=== PATIENT | male | born 1995 | race Caucasian/White ===

== ENCOUNTER 2018-10-19 15:08 | Emergency (ER) | payer MEDICAID ==
[~2018-10-19] VITALS: Ht 175.3 cm; Wt 80.9 kg
[2018-10-19 15:20] VITALS: BP 161/89; PULSE 79; RESP 18; Ht 175.3 cm; Wt 80.9 kg
--- NOTE | 2018-10-19 16:17 | ERD ---
ER Documentation Chief Complaint Chief Complaint left hand, laceration, bleeding control, good pulse. HPI 23-year-old male presents with complaint of laceration to the palm of his left hand. States that laceration occurred earlier today while he was trimming a plant and cut his palm with scissors. Patient denies any numbness or tingling or weakness. Patient states that he is had his immune vaccinations as a child but he does not think he is up-to-date on his tetanus. States his pain is currently 7 out of 10. He is right-hand dominant. He states he is not driving home. Denies any allergies or medical problems. ROS All systems reviewed and are negative except as per history of present illness. Medications Home Meds Active Scripts Bacitracin* (Bacitracin Oint (UD)*) 1 Applic Oint, 1 APPLIC TOP BID, #1 TUB APPLY TO Prov:SURYA SPICER 10/19/18 Cephalexin* (Keflex*) 500 Mg Capsule, 500 MG PO QID for 7 Days, CAP Prov:RUCATARINACAMILLESURYA 10/19/18 Hydrocodone/Acetaminophen ([place] 5-325 Tablet) 1 Each Tablet, 1 TAB PO Q6H PRN for PAIN, #7 TAB Prov:SURYA SPICER 10/19/18 Ibuprofen* (Motrin*) 600 Mg Tab, 600 MG PO Q6, #30 TAB Prov:SURYA SPICER 10/19/18 Allergies Allergies: Coded Allergies: No Known Allergy (Unverified , 10/19/18) FmHx Family History: No diabetes, No coronary disease, No other Physical Exam Vitals Vital Signs Date Temp Pulse Resp B/P (MAP) Pulse Ox O2 O2 Flow FiO2 Time Delivery Rate 10/19/18 97.3 79 18 161/89 98 15:20 (113) Physical Exam Const: No acute distress Head: Atraumatic Eyes: Normal Conjunctiva ENT: Normal External Ears, Nose and Mouth. Neck: Full range of motion. No meningismus. Resp: Clear to auscultation bilaterally Cardio: Regular rate and rhythm, no murmurs Abd: Soft, non tender, non distended. Normal bowel sounds Skin: Approximately 2 cm laceration noted to the thenar eminence of left palm with no evidence of foreign body. No current bleeding. Sensation and range of motion of all fingers and wrist is intact. No evidence of tendon laceration or infection. Back: No midline or flank tenderness Ext: No cyanosis, or edema Neur: Awake and alert Psych: Normal Mood and Affect Results 24 hrs Current Medications Medications Dose Sig/Thony Start Time Status Last (Trade) Ordered Route PRN Stop Time Admin Dose Reason Admin Diphtheria/ 0.5 ml ONCE ONCE 10/19/18 DC 10/19/18 Tetanus/Acell IM* 16:30 16:15 Pertussis 10/19/18 16:31 (Adacel) Oxycodone/ 1 tab ONCE ONCE 10/19/18 DC 10/19/18 Acetaminophen PO 16:30 16:15 (Percocet 10/19/18 16:31 (5/ 325)) Bacitracin 1 applic ONCE ONCE 10/19/18 DC 10/19/18 (Bacitracin TOP 16:30 16:14 Oint (Ud)) 10/19/18 16:31 Lidocaine 20 ml ONCE ONCE 10/19/18 DC (Xylocaine SC 16:30 1% (Mdv) 20 10/19/18 16:31 ml) Procedures/MDM DIAGNOSTIC IMAGING REPORT Patient: BART GONZALES : 1995 Age: 23 Sex: M MR #: [id number] DOS: 10/19/18 1607 Ordering MD: SURYA SPICER Location: FTE Room/Bed: PROCEDURE: XR Hand. CLINICAL INDICATION: Pain, soft tissue laceration, foreign body TECHNIQUE: AP, oblique and lateral views of the left hand were obtained. COMPARISON: No prior studies are available for comparison. FINDINGS: The bones of the hand appear intact, with no evidence of fracture, dislocation, or subluxation. The joint spaces are preserved. Bone mineralization is normal. Soft tissue swelling is present. No radiopaque foreign bodies. IMPRESSION: No fracture, dislocation or radiopaque foreign bodies. Soft tissue swelling. RPTAT: EE .Linda Chacon MD, Date Time Electronically viewed and signed by .Linda Chacon MD, on 10/19/2018 17:11 .F/ CC: DANNIELLEGILDASURYA [id number] Laceration Repair by me: Anesthesia: 1% lidocaine locally Location: Left thenar eminence Tendon/Joint/Nerves: No injury Foreign body: None detected after copious irrigation and exploration Technique: Simple Interrupted Sutures Complexity: No subcutaneous sutures/mucosal repair/edge excision Post Closure Length: 2 cm Laceration repaired by Tariq SALINAS under my supervision with approval of preceptor Dr Sher. TDap administered. Patient had tetanus vaccine in past, but not up to day. Given rx for kelfex due to location of lacerations. Patient's bleeding was easily controlled in the department and there is no indication of anemia. No evidence of compartment syndrome, neurologic injury, vascular injury, open joint, tendon laceration, or foreign body. Patient is appropriate for outpatient follow up. 48 hour wound check. Scar minimization instructions given. Departure Diagnosis: Primary Impression: Laceration Condition: Stable SURYA SPICER Oct 19, 2018 16:17
[2018-10-19] MEDS ORDERED: LIDOCAINE 1% (MDV) 20 ML INJ SC ONE (16:30)
[2018-10-19] MEDS ORDERED: DIPHTH/TET/ACEL PERTUSS (ADULT) 0.5 ML VIAL IM* ONE (16:30)
[2018-10-19] MEDS ORDERED: OXYCODONE/ACETAMINOPHEN (5/325) TAB PO ONE (16:30)
[2018-10-19] MEDS ORDERED: BACITRACIN 0.9 GM OINT TOP ONE (16:30)
[2018-10-19] MEDS ORDERED: IBUP-1542 PO (17:07)
[2018-10-19] MEDS ORDERED: BACITUD TOP (17:07)
[2018-10-19] MEDS ORDERED: HYDR-4011 PO (17:07)
[2018-10-19] MEDS ORDERED: CEPH-443 PO (17:07)
== END 2018-10-19 18:14 | disposition home or self-care (01) ==
LOC: FTE 15:08
DX: S61.412A Laceration without foreign body of left hand, initial encounter (principal); W27.2XXA Contact with scissors, initial encounter; Y92.9 Unspecified place or not applicable; Z23 Encounter for immunization
CPT/HCPCS: 12001; 73130; 90471; 90715; Z7502; Z7610

== ENCOUNTER 2018-10-21 09:08 | Emergency (ER) | payer MEDICAID ==
[~2018-10-21] VITALS: Ht 172.7 cm; Wt 79.3 kg
[~2018-10-21 09:08] MED LIST: BACITUD TOP; CEPH-443 PO; HYDR-4011 PO; IBUP-1542 PO
[2018-10-21 09:10] VITALS: BP 126/65; PULSE 59; RESP 21; Ht 172.7 cm; Wt 79.3 kg
[2018-10-21] MEDS ORDERED: BACI28.34 TOP (09:27)
[2018-10-21] MEDS ORDERED: BACITRACIN 0.9 GM OINT TOP ONE (09:30)
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
== END 2018-10-21 10:06 | disposition home or self-care (01) ==
LOC: FTE 09:08
DX: Z48.01 Encounter for change or removal of surgical wound dressing (principal)
CPT/HCPCS: Z7502; Z7610; 99283

== ENCOUNTER 2018-10-29 11:59 | Emergency (ER) | payer MEDICAID ==
[~2018-10-29] VITALS: Ht 170.2 cm; Wt 79.3 kg
[~2018-10-29 11:59] MED LIST changes: +BACI28.34 TOP
[2018-10-29 12:11] VITALS: BP 128/67; PULSE 70; RESP 18; Ht 170.2 cm; Wt 79.3 kg
[2018-10-29] MEDS ORDERED: KETOROLAC 60 MG INJ IM STA (12:49)
[2018-10-29] MEDS ORDERED: SULF1TAB31 PO (12:56)
[2018-10-29] MEDS ORDERED: IBUP800T48 PO (12:56)
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
== END 2018-10-29 13:27 | disposition home or self-care (01) ==
LOC: FTE 11:59
DX: T81.31XA Disruption of external operation (surgical) wound, not elsewhere classified, initial encounter (principal); M79.89 Other specified soft tissue disorders; Y82.8 Other medical devices associated with adverse incidents
CPT/HCPCS: 29130; 96372; J1885; Z7502